=== PATIENT | male | born 1990 | race Caucasian/White ===

== ENCOUNTER 2022-08-24 12:14 | Emergency (ER) | payer BC, SELFPAY ==
[2022-08-24 12:27] VITALS: BP 146/89; PULSE 90; RESP 16; TEMP 37.7; O2SAT 99
--- NOTE | 2022-08-24 13:29 | PC.NURSE ---
1324- Pt update on wait time.
--- NOTE | 2022-08-24 14:21 | ED.DENTAL ---
HPI - Dental/Oral General Chief complaint: Dental/Oral Stated complaint: Dental Pain Time Seen by Provider: 08/24/22 14:05 Source: patient, RN notes reviewed and old records reviewed Mode of arrival: ambulatory Limitations: no limitations History of Present Illness HPI Narrative: 32-year-old male accompanied by presents to [facility] with complaints of dental pain swelling and pain to his face upper maxillary region for the past 2 days with pain to #7 tooth and surrounding gum red.. Patient reports that he has taken Ibuprofen and Tylenol for his discomfort and has applied some topical analgesic for dental pain with short intervals of pain decrease. Patient reports no difficulty with swallowing or with his breathing, no trismus noted. ain as 10/07 ad describes as throbbing MD Complaint: tooth pain Location: Tooth # (7) Onset (ago): day(s) (2) Severity scale (1-10): 7 Treatment prior to arrival: topical analgesic and oral analgesic Related Data Allergies Allergy/AdvReac Type Severity Reaction Status Date / Time No Known Allergies Allergy Verified 08/24/22 12:41 Review of Systems Review of Systems: CONSTITUTIONAL: Denies fever, chills, or sweats. ENT: Denies rhinorrhea, congestion, sore throat, or otalgia. Reports dental pain to #7 tooth with swelling to face right maxillary region CARDIOVASCULAR: Denies chest pain, palpitations, or edema. RESPIRATORY: Denies cough or dyspnea. SKIN: Denies rash or itching. MUSCULOSKELETAL: Denies myalgia. NEUROLOGIC: Denies headache All systems reviewed & are unremarkable except as noted in HPI and below PMFSH Family History Family History (Updated 06/27/16 @ 18:13 by DOCTOR UNKNOWN) Mother Patient's mother is in good health Hypertension Father Patient's father is in good health Sibling Patient's sister is in good health Patient's brother is in good health Other Diabetes mellitus Social History Social History Smoking status: Never smoker Alcohol intake: current Comments At time of signature, agree with nursing past medical, surgical, social and family history. There is no relevant family history pertinent to the presenting complaint Exam Narrative: GENERAL: Well-appearing, well-nourished, and in no acute distress. HEAD: Normocephalic, atraumatic. EYES: PERRLA and EOMI. ENT: Nares clear, no rhinorrhea or epistaxis. Mucous membranes moist. gum red and swollen around #7 tooth with tooth darkened, swelling to right maxillary area on face. NECK: Supple.no lymphadenopathy CHEST: Clear to auscultation. No respiratory distress.SAO2 99% on room air HEART: Regular rate and rhythm. No murmur heard. Normal peripheral pulses. SKIN: Warm, dry, no rash. NEURO: No focal deficits. Alert and oriented x3. Course Course Emergency Course: Patient is aware of diagnosis, understands and agrees to treatment plan. Anticipatory guidance given. Patient agrees to follow-up as directed and is aware of reasons to seek care at the emergency department. Portions of this record may have been created with voice recognition software Level of Care: Express Care Visit Vital Signs Vital signs: Vital Signs Temperature 37.7 C H 08/24/22 12:27 Pulse Rate 90 08/24/22 12:27 Respiratory Rate 16 08/24/22 12:27 Blood Pressure 146/89 H 08/24/22 12:27 Pulse Oximetry 99 08/24/22 12:27 Oxygen Delivery Room Air 08/24/22 12:27 Temperature 37.7 C H 08/24/22 12:27 Pulse Rate 90 08/24/22 12:27 Respiratory Rate 16 08/24/22 12:27 Blood Pressure 146/89 H 08/24/22 12:27 Pulse Oximetry 99 08/24/22 12:27 Oxygen Delivery Room Air 08/24/22 12:27 Reviewed MDM - Dental/Oral MDM Narrative Medical decision making narrative: Patients pain and complaint coupled with physical findings are consistent with dentalgia. There are no focal signs of space occupying lesions that are compromising to the airway; no dysphagia, odynophagia, dysphonia, or dyspnea. No uvul
== END 2022-08-24 14:36 | disposition home or self-care (01) ==
PROVIDERS: Emergency Provider Registered Nurse
DX: K04.7 Periapical abscess without sinus (principal)
CPT/HCPCS: 99213; G0463

== ENCOUNTER 2022-08-30 15:39 | Emergency (ER) | payer BC, SELFPAY ==
--- NOTE | ~2022-08-30 | CT_ITS ---
EXAMINATION: CT brain wo con, CT facial bones w con DATE: 08/30/2022 18:24 INDICATION: Right upper tooth infection presenting with headache and facial swelling TECHNIQUE: 1. Computed tomography (CT) of the head was performed without intravenous contrast. Sagittal and ekta nal reconstructions were obtained. The mA was adjusted according to patient size. Iterative reconstru ction technique was employed. The dose-length product was 681.0 mGy-cm. 2. CT of the facial bones and maxillofacial region was performed with 75 mL Omnipaque-350 intravenous contrast. Sagittal and coronal reconstructions were obtained. Automated exposure control and iterati ve reconstruction technique were employed. The dose-length product was 500.18 mGy-cm. COMPARISON: None. FINDINGS: Head CT: No acute intracranial hemorrhage, acute infarction or abnormal extra axial fluid collection. Ventricl es are normal and symmetric. No mass/mass effect. No abnormally enhancing lesions in the portion of t he brain visualized on the maxillofacial CT. Maxillofacial CT: Likely small dental caries, centrally at the right mandibular second molar, tooth #31 and along the b uccal margin of the second left maxillary molar, tooth #15. No other dental caries identified. There is a periapical erosion of the right maxillary lateral incisor, tooth #7. There is no overlying subpe riosteal abscess which extends 1.8 cm craniocaudally to the nasal process of the right maxilla which measures 1.5 cm medial collateral and up to 7 mm in maximal AP thickness. There is prominent soft tis jovany swelling and likely phlegmonous change the upper lip and at the right nasolabial fold. Moderate m ucosal thickening along the caudal aspect of the right maxillary sinus. Mild mucosal thickening at th e right frontoethmoidal recess and in the left sphenoid sinus. Bilateral mastoid air cells and middle ear cavities are clear. Orbits are normal. Likely reactive mild submandibular lymphadenopathy, right greater than left. Bilateral parotid and submandibular glands are unremarkable. Mild spondylosis in the visualized cervical spine. IMPRESSION: 1. Dental disease as detailed above most notable for a periapical erosion at the right maxillary late ral incisor with associated subperiosteal abscess and prominent surrounding edema consistent with bul lous change underlying the right nasolabial fold. 2. Normal brain. No acute intracranial process. 3. Sinus disease most prominent along the floor of the right maxillary sinus which may be reactive re lated to the adjacent dental disease. Reviewed, dictated and finalized at location A. IMPRESSION: 1. Dental disease as detailed above most notable for a periapical erosion at th e right maxillary lateral incisor with associated subperiosteal abscess and pro minent surrounding edema consistent with bullous change underlying the right na solabial fold. 2. Normal brain. No acute intracranial process. 3. Sinus disease most prominent along the floor of the right maxillary sinus wh ich may be reactive related to the adjacent dental disease.
[2022-08-30 15:41] VITALS: BP 150/88; PULSE 122; RESP 20; TEMP 36.2; O2SAT 100
[2022-08-30] MEDS: ONDANSETRON INJ 4 MG/2 ML VIAL IV PUSH (17:21)
[2022-08-30] MEDS: SODIUM CHLORIDE 0.9% IV 1,000 ML 999 ML IV CONT (17:21)
[2022-08-30 17:46] LABS: Basophils Percent Auto 0.2 % (0.2-1.2); Eosinophils Absolute Auto 0.1 K/mm3 (0-0.3); Eosinophils Percent Auto 1.1 % (0-4.4); Hematocrit 42.5 % (42.0-52.0); Immature Granulocyte Absolute 0.03 K/mm3 (0.00-0.031); Immature Granulocyte Percent A 0.3 % (0-0.5); Lymphocytes Absolute Auto 1.14 K/mm3 (0.9-3.2); Lymphocytes Percent Auto 12.6 % (18.3-44.2); Mean Corpuscular HGB Conc 35.3 g/dl (32-36); Mean Corpuscular Hemoglobin 30.7 pg (26-34); Mean Corpuscular Volume 87.1 fl (80-100); Mean Platelet Volume 10.5 fl (7.4-10.4); Monocytes Absolute Auto 0.4 K/mm3 (0.1-0.6); Monocytes Percent Auto 4.5 % (2.6-8.5); Neutrophils Absolute Auto 7.3 K/mm3 (1.3-6.7); Neutrophils Percent Auto 81.3 % (45.5-73.1); Platelet Count Result 190 k/mm3 (150-375); Red Blood Count 4.88 M/mm3 (4.6-6.20); Red Cell Distribution Width 12.4 % (11.5-14.5)
[2022-08-30 18:02] LABS: Lactic Acid Reflex 1.9 mmol/L (0.7-2.0)
--- NOTE | 2022-08-30 18:02 | ED.GENADULT ---
HPI - General Adult General Chief complaint: Dental/Oral Stated complaint: dental, lip swelling Time Seen by Provider: 08/30/22 15:57 History of Present Illness HPI narrative: Elvis Hutchinson is a 32 y/o male who presents with reports of having a dental infection. He reports that this his dental pain started over a week ago. He went to an 1 week ago and he was started on oral antibiotics. He went to his dentist the following Friday ( 4 days after starting the antibiotics) and the dentist told him to finish the antibiotics and then return for follow up. He finished the antibiotics today and reports he is feeling worse with pain and having more swelling to his face/gum area. He denies any known fevers but reports feeling hot and cold. Related Data Allergies Allergy/AdvReac Type Severity Reaction Status Date / Time No Known Allergies Allergy Verified 08/24/22 12:41 Review of Systems Review of Systems: CONSTITUTIONAL: Denies fever, chills, or sweats. EYES: Denies visual changes, redness, or discharge. ENT: Denies rhinorrhea, congestion, sore throat, complains of dental pain to the upper teeth/ facial to his right side of his face that seems to be spreading to the other side of his face. CARDIOVASCULAR: Denies chest pain, palpitations, or edema. RESPIRATORY: Denies cough or dyspnea. GASTROINTESTINAL: Denies abdominal pain, nausea, vomiting, or diarrhea. GENITOURINARY: Denies dysuria or hematuria. SKIN: Denies rash or itching. MUSCULOSKELETAL: Denies back pain, joint pain, or myalgia. NEUROLOGIC: Denies headache, numbness, dizziness, or weakness. PSYCHIATRIC: Denies anxiety or depression. PMFSH Family History Family History Mother Patient's mother is in good health Hypertension Father Patient's father is in good health Sibling Patient's sister is in good health Patient's brother is in good health Other Diabetes mellitus Social History Social History Smoking status: Never smoker Alcohol intake: current Exam Narrative: GENERAL: Well-appearing, well-nourished, and in no acute distress. HEAD: Normocephalic, atraumatic. EYES: PERRLA and EOMI. ENT: Nares clear, no rhinorrhea or epistaxis. Mucous membranes moist. Moderate facial swelling to the right side of his face/ lip swelling/ gum swelling when lifted up the upper lip to examine teeth, green pus poured out of two open areas between gum line and the lip, pressed and suctioned out more pus NECK: Supple. No adenopathy or masses. No carotid bruits or JVD CHEST: Clear to auscultation. No respiratory distress. No wheezes rales or rhonchi HEART: Regular rate and rhythm. No murmur heard. Normal peripheral pulses. ABDOMEN: Soft, nontender, nondistended, normal active bowel sounds. EXTREMITIES: Normal range of motion. No edema. SKIN: Warm, dry, no rash. NEURO: No focal deficits. Alert and oriented x3. PSYCH: Normal mood and affect. Course Vital Signs Vital signs: Vital Signs Temperature 36.2 C L 08/30/22 15:41 Pulse Rate 122 H 08/30/22 15:41 Respiratory Rate 20 08/30/22 15:41 Blood Pressure 150/88 H 08/30/22 15:41 Pulse Oximetry 100 08/30/22 15:41 Oxygen Delivery Room Air 08/30/22 15:41 Temperature 36.2 C L 08/30/22 15:41 Pulse Rate 122 H 08/30/22 15:41 Respiratory Rate 20 08/30/22 15:41 Blood Pressure 150/88 H 08/30/22 15:41 Pulse Oximetry 100 08/30/22 15:41 Oxygen Delivery Room Air 08/30/22 15:41 Vitals reviewed by me. Medical Decision Making MDM Narrative Medical decision making narrative: Patient appears to be clammy/ appears to be uncomfortable with pain and swelling to gums/face from what he says is a toothache that has been ongoing for over a week and has been evaluated twice already. Moderate facial swelling to the right side of his face/ lip swelling/ gum swelling when lifted up the u
[2022-08-30 18:04] LABS: Potassium 3.5 mmol/L (3.4-5.0)
[2022-08-30 18:08] LABS: CRP 5.5 mg/dL (<1.0)
[2022-08-30 18:10] LABS: Alanine Aminotransferase 31 U/L (6-50); Albumin Level 4.4 g/dL (3.5-5.1); Alkaline Phosphatase 91 U/L (38-126); Anion Gap 8 mmol/L (8-16); Aspartate Amino Transferase 26 U/L (17-59); Bilirubin,Total 1.1 mg/dL (0.2-1.3); Blood Urea Nitrogen 8 mg/dL (9-20); Calcium 8.8 mg/dL (8.4-10.2); Carbon Dioxide 29 mmol/L (22-30); Chloride 101 mmol/L (98-107); Estimated CRCL calculation 147 ml/min; Estimated Glomerular Filt Rate > 60; Glucose 143 mg/dL (65-110); Sodium 138 mmol/L (137-145)
[2022-08-30 18:23] LABS: Erythrocyte Sedimentation Rate 24 mm/hr (0-20)
[2022-08-30] MEDS: CLINDAMYCIN 600 MG/D5W 50 ML 600 MG/50 ML PIGGYBACK 100 MG (19:41)
[2022-08-30 20:48] VITALS: BP 135/83; PULSE 92; RESP 18; TEMP 36.7; O2SAT 98
== END 2022-08-30 20:50 | disposition home or self-care (01) ==
PROVIDERS: Emergency Provider Nurse Practitioner Family; PCP Emergency Medicine
DX: K04.7 Periapical abscess without sinus (principal); K02.9 Dental caries, unspecified
CPT/HCPCS: 36415; 70450; 70487; 80053; 83605; 85025; 85652; 86140; 87040; 87070; 87077; 87205; 96361; 96365; 96375; 99284; J2405; J7030; Q9967

== ENCOUNTER 2023-04-23 22:28 | Emergency (ER) | payer OTHER, BC, SELFPAY ==
--- NOTE | ~2023-04-23 | XR_ITS ---
EXAMINATION: XR elbow RT min 3V DATE: 04/23/2023 23:12 INDICATION: Right elbow pain. Fall. TECHNIQUE: 4 views of right elbow were obtained. COMPARISON: None. FINDINGS: Bone alignment is normal. No fracture. Joint spaces are normal. No elbow joint effusion. IMPRESSION: 1. No fracture. Reviewed, dictated and finalized at location E. GY AUDIT ADVISOR IMPRESSION: 1. No fracture.
--- NOTE | ~2023-04-23 | XR_ITS ---
2 views of the right clavicle CLINICAL HISTORY: Trauma FINDINGS: No fracture or dislocation seen. Joint spaces are preserved. Soft tissues are unremarkable. IMPRESSION: Unremarkable exam. Reviewed, dictated and finalized at location M. INCT COMMANDING OFFICER IMPRESSION: Unremarkable exam.
[2023-04-23 22:34] VITALS: BP 132/84; PULSE 62; RESP 15; TEMP 36.6; O2SAT 100
--- NOTE | 2023-04-24 01:15 | ED.GENADULT ---
[facility] - General Adult General Chief complaint: Extremity Injury, Upper Stated complaint: Fall, and messed up elbow, right elbow Time Seen by Provider: 04/24/23 00:18 Source: patient Mode of arrival: ambulatory Limitations: no limitations History of Present Illness HPI narrative: This is a 32-year-old male who presents to the ED with chief complaint of a fall that occurred this evening just prior to arrival. 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 Reports pain throughout the right shoulder, collarbone and elbow. Denies any further sites of pain or injury. Related Data Allergies Allergy/AdvReac Type Severity Reaction Status Date / Time No Known Allergies Allergy Verified 08/24/22 12:41 Review of Systems Review of Systems: All systems as dictated in [facility] Family History Family History Mother Patient's mother is in good health Hypertension Father Patient's father is in good health Sibling Patient's sister is in good health Patient's brother is in good health Other Diabetes mellitus Social History Social History Smoking status: Never smoker Alcohol intake: current Exam Narrative: GENERAL: Well-appearing, well-nourished, and in no acute distress. HEAD: Normocephalic, atraumatic. EYES: PERRLA and EOMI. ENT: Nares clear, no rhinorrhea or epistaxis. Mucous membranes moist. Oropharynx without tonsillar hypertrophy exudate or other lesions. NECK: Supple. No adenopathy or masses. CHEST: No respiratory distress. Clear to auscultation. No wheezes rales or rhonchi HEART: Regular rate and rhythm. No murmur heard. Normal peripheral pulses. ABDOMEN: Soft, nontender, nondistended, normal active bowel sounds. MSK: Full active and passive range of motion of the right shoulder and elbow. Minor abrasions to the right elbow. Neurovascularly intact distally. Mild tenderness to the right clavicle. No skin tenting. No bruising or crepitus throughout the extremity. SKIN: Warm, dry, no rash. NEURO: Alert and oriented x3. No focal deficits. PSYCH: Normal mood and affect. Course Vital Signs Vital signs: Vital Signs Temperature 97.9 F 04/23/23 22:34 Pulse Rate 62 04/23/23 22:34 Respiratory Rate 15 04/23/23 22:34 Blood Pressure 132/84 04/23/23 22:34 Pulse Oximetry 100 04/23/23 22:34 Oxygen Delivery Room Air 04/23/23 22:34 Temperature 97.9 F 04/23/23 22:34 Pulse Rate 62 04/23/23 22:34 Respiratory Rate 15 04/23/23 22:34 Blood Pressure 132/84 04/23/23 22:34 Pulse Oximetry 100 04/23/23 22:34 Oxygen Delivery Room Air 04/23/23 22:34 Medical Decision Making MDM Narrative Medical decision making narrative: This is a 32-year-old male who presents to the ED with chief complaint of a fall just prior to arrival. Was walking outside and slipped. Vitals are normal. Exam shows mild tenderness to the right distal clavicle and right elbow. Imaging the upper negative for any acute fractures. Symptoms are consistent with sprain versus strain. Sling given for comfort. pt will be discharged in stable condition. Return precautions given and supportive measures discussed. Pt is understanding and agreeable with plan for discharge and follow-up with PCP. Vital Signs Vital Signs: Vital Signs Temperature 97.9 F 04/23/23 22:34 Pulse Rate 62 04/23/23 22:34 Respiratory Rate 15 04/23/23 22:34 Blood Pressure 132/84 04/23/23 22:34 Pulse Oximetry 100 04/23/23 22:34 Oxygen Delivery Room Air 04/23/23 22:34 Temperature 97.9 F 04/23/23 22:34 Pulse Rate 62 04/23/23 22:34 Respiratory Rate 15 04/23/23 22:34 Blood Pressure 132/84 04/23/23 22:34 Pulse Oximetry 100 04/23/23 22:34 Oxygen Delivery Room Air 04/23/23 22:34 Discharge Plan Discharge Clinical Impression: Fall
== END 2023-04-24 02:00 | disposition home or self-care (01) ==
PROVIDERS: Emergency Provider Physician Assistant; PCP Emergency Medicine
DX: S50.311A Abrasion of right elbow, initial encounter (principal); W01.0XXA Fall on same level from slipping, tripping and stumbling without subsequent striking against object, initial encounter
CPT/HCPCS: 73000; 73080; 99284; A4565

== ENCOUNTER 2024-11-18 12:25 | Emergency (ER) | payer OTHER, SELFPAY ==
[2024-11-18 12:39] VITALS: BP 121/75; PULSE 91; RESP 16; TEMP 36.7; O2SAT 98
--- NOTE | 2024-11-18 13:25 | ED_ITS ---
HPI - Wound/Laceration General Chief Complaint: Wound/Laceration Stated Complaint: Insect Bite Time Seen by Provider: 11/18/24 13:15 Source: patient and RN notes reviewed Mode of arrival: ambulatory Limitations: no limitations History of Present Illness HPI narrative: 34-year-old male presents [facility] complaining of possible bug staying to the left wrist area. Patient said he was stung by something yesterday he was unsure if it was a wasp or a hornet. Send patient reports increased redness and swelling near his left wrist. Patient denies any pain but reports his wrist feels tight. Patient denies any fevers, body aches, chills, nausea, vomiting, drainage, Patient tried a dose of Benadryl yesterday without any relief. Patient denies any swelling to his face, lips, tongue, throat, wheezing, breathi ng problems or any other symptoms. Related Data Home Medications ?Medication ?Instructions ?Recorded ?Confirmed ?Last Taken ?Type fexofenadine 60 mg-pseudoephedrine 1 tablet PO Q12H Unknown History ER 120 mg tablet,ext.release,12 hr (Allergy Relief-D (fexofenadine)) Allergies Allergy/AdvReac Type Severity Reaction Status Date / Time No Known Allergies Allergy Verified 11/18/24 12:45 Review of Systems Review of Systems: CONSTITUTIONAL: Denies fever, chills, or sweats. EYES: Denies visual changes, redness, or discharge. ENT: Denies rhinorrhea, congestion, sore throat, or otalgia. CARDIOVASCULAR: Denies chest pain, palpitations, or edema. RESPIRATORY: Denies cough or dyspnea. GASTROINTESTINAL: Denies abdominal pain, nausea, vomiting, or diarrhea. GENITOURINARY: Denies dysuria or hematuria. SKIN: Denies rash or itching. Positive for redness and swelling. MUSCULOSKELETAL: Denies back pain, joint pain, or myalgia. NEUROLOGIC: Denies headache, numbness, or weakness. PSYCHIATRIC: Denies anxiety or depression. All other systems reviewed are negative, except as documented in HPI. [facility] Family History Family History Mother Patient's mother is in good health Hypertension Father Patient's father is in good health Sibling Patient's sister is in good health Patient's brother is in good health Other Diabetes mellitus Social History Social History Smoking status: Never smoker Alcohol intake: current Comments At the time of my signature, I reviewed and agree with the nursing past medical, surgical, social, and family history. There is no relevant family history pertinent to the patient complaint. Exam Narrative: GENERAL: This is a well-nourished, well-developed adult, in no apparent distress. They are non ill-appearing, nontoxic appearing. HEAD: normocephalic, atraumatic. EYES: Sclera clear/white. Conjunctiva normal. Vision is grossly intact. Extraocular movements intact EARS: External ears normal, Hearing grossly intact. NOSE: External nose normal THROAT: Mucous membranes moist, NECK: Neck supple, CARDIOVASCULAR: Regular rate and rhythm RESPIRATORY: Respiratory rate normal, respiratory effort nonlabored, no respiratory distress SKIN: Left wrist: Mildly Erythematous and warm to palpate. Is nontender. Puncture wound present to the lateral wrist. It is pruritic. No exudate, no area of fluctuance, no induration. NEURO: awake, alert, and oriented to person, place and time. There were no obvious focal neurologic abnormalities. EXTREMITIES: No joint tenderness, effusion, or edema noted. Course Course Emergency Course: Portions of this record may have been created with voice recognition software Level of Care: Express Care Visit Vital Signs Vital signs: Vital Signs Temperature 98.0 F 11/18/24 12:39 Pulse Rate 91 11/18/24 12:39 Respiratory Rate 16 11/18/24 12:39 Blood Pressure 121/75 11/18/24 12:39 Pulse Oximetry 98 11/18/24 12:39 Oxygen Delivery Room Air 11/18/24 12:39 Temperature 98.0 F 11/18/24 12:39 Pulse Rate 91 11/18/24 12:39 Respiratory Rate 16 11/18/24 12:39 Blood Pressure 121/75 11/18/24 12:39 Pulse Oximetry 98 11/18/24 12:39 Oxygen Delivery Room Air 11/18/24 12:39 Reviewed MDM - Wound/Laceration MDM Narrative Medical decision making narrative: Patient likely has localized allergic reaction from insect sting yesterday. Given swelling and pruritus will go ahead and prescribe a course of prednisone. Will also recommend patient taking Zyrtec daily for next 5 days. Discussed physical exam findings. Advised supportive measures and signs/symptoms to go to the ER. Pt is appropriate for outpt treatment and f/u. Differential Diagnosis Differential diagnosis: Likely other (Insect sting, cellulitis, abscess, allergic reaction) Critical Care Time Critical Care Time Critical Care Time: No Discharge Plan Discharge Clinical Impression: Accidental insect sting Patient Disposition: Home Condition: Stable Instructions: Insect Bite or Sting (ED) Additional Instructions: Take the prednisone as directed, take it with food. Take Zyrtec daily 10 mg by mouth for the next 5 days. You may use Benadryl as needed for itchiness or allergy symptoms. Follow instructions on the bottle. Intro may make you drowsy. You may also use topical hydrocortisone cream or calamine lotion as needed for itchiness. Apply to the affected area, use as directed on the bottle. You may use cold compresses to help with swelling, apply 20 minutes at a time, few times a day. If you develop worsening redness, swelling, pain, green/yellow drainage, fevers, body aches. chills, or any other concerns please go to the ER immediately. Patient Language: [place] Prescriptions: New prednisone 20 mg tablet 40 mg PO DAILY 5 Days Qty: 10 0RF No Action fexofenadine-pseudoephedrine [Allergy Relief-D(fexofenadine)] 60-120 mg tablet extended release 12 hr 1 tablet PO Q12H Follow-up/Referrals: PHYSICIAN,CLEARING DISTRIBUTION CLERK [Primary Care Provider, Internal Medicine] Time of Disposition: 13:23
== END 2024-11-18 13:30 | disposition home or self-care (01) ==
DX: T63.481A Toxic effect of venom of other arthropod, accidental (unintentional), initial encounter (principal)
CPT/HCPCS: 99213; G0463